=== PATIENT | female | born 1960 ===

== ENCOUNTER 2023-05-18 13:08 | Emergency (ER) | payer OTHER, SELFPAY ==
--- NOTE | ~2023-05-18 | XR_ITS ---
EXAMINATION: XR WRIST, RIGHT XR HAND, RIGHT CLINICAL INFORMATION: Fall. COMPARISON: None available. TECHNIQUE: PA, lateral, and oblique views of the right wrist and PA, lateral, and oblique views of the right hand FINDINGS: RIGHT WRIST: There is a nondisplaced fracture distal radius. There is mild dorsal wrist soft tissue swelling There is normal intercarpal, radioulnar carpal and carpometacarpal alignment. The soft tissues are normal. RIGHT HAND: The bones and soft tissues are normal. No fracture. Alignment is anatomic. Joint spaces are maintained. No erosions or soft tissue calcifications. XR/XR hand wrist RT IMPRESSION: 1. Nondisplaced fracture distal radius with mild soft tissue swelling. 2. Otherwise unremarkable right hand and right wrist exam.
[2023-05-18 14:20] VITALS: BP 119/63; PULSE 70; RESP 19; TEMP 36.6; O2SAT 99; BMI 24.8
--- NOTE | 2023-05-18 15:13 | ED_ITS ---
HPI - Extremity Injury (Upper) General Chief Complaint: Extremity Injury, Upper Stated Complaint: R Wrist Injury 05/18/23 Time Seen by Provider: 05/18/23 15:05 Source: patient and family Mode of arrival: ambulatory Limitations: no limitations History of Present Illness HPI narrative: 62 yo right hand dominant female presents to the ER for evaluation of right wrist pain after a slip and fall today. She tripped on a ramp while carrying groceries and fell on an outstretched hand. She reports pain in the entire wrist, mostly on the radial side which radiates proximally. No bruising or deformity, minimal swelling. Not on blood thinners. No other injuries. complaint: injury to: right and wrist Onset (ago): hour(s) Other Extremity Injury: right: wrist Other injuries: none Place: outdoors Severity: moderate Exacerbating factors: movement of extremity Context: fall Associated symptoms: denies other symptoms Related Data Allergies Allergy/AdvReac Type Severity Reaction Status Date / Time No Known Allergies Allergy Verified 05/18/23 14:20 Review of Systems Review of Systems: Yes all other systems are reviewed and are negative FORMERLY [facility], [facility] Social History Social History Advance Directives: No Advance Directives Information Provided: No Physical Exam Vital Signs: Vital Signs: Last Vital Signs Temp 98 F 05/18/23 14:20 Pulse 70 05/18/23 14:20 Resp 19 05/18/23 14:20 BP 119/63 05/18/23 14:20 Pulse Ox 99 05/18/23 14:20 O2 Del Method Room Air 05/18/23 14:20 BMI result Body Mass Index 24.8 Appearance: Alert. Oriented X3. No acute distress. Deaf, using lip reading to communicate HEENT: normal inspection CVS: Normal heart rate and rhythm. Pulses normal. Respiratory: No respiratory distress. Skin: Skin warm and dry. Normal skin color. Normal skin turgor. No rashes. Extremities: right wrist and distal forearm with trace swelling, tenderness of the dorsal wrist and lateral wrist over the distal radius. no gross deformity. hand is warm and well perfused. 2+ radial pulse and cap refill <3 sec. 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 nontender right forearm w/ FROM of the right elbow and shoulder. no metacarpal bone tenderness Neuro: Oriented X 3. Medical Decision Making Medical Decision Making MDM Narrative: 62 y/o female w/ hx deafness, epilepsy presenting w/ right wrist pain s/p mechanical fall today. xr w/ nondisplaced distal radius fracutre. NV intact. placed in splint. counseled w/ her at the bedside the diagnosis, treatment and expected course along w/ need for follow up with orthopedics. they expressed understanding and all questions were answered Differential Diagnosis Differential Diagnoses: The differential diagnosis associated with the presentation includes colles fracture, lubin fracture, distal radius fracture, ulnar fracture, wrist sprain Independent Interpretation I performed an independent interpretation of an: Plain X-Ray Interpretation: distal radius fracture, no displacement Radiology Impression Discussion of test interpretation with radiology: I have reviewed the radiologist's reading. Radiologist Impression: EXAMINATION: XR WRIST, RIGHT XR HAND, RIGHT CLINICAL INFORMATION: Fall. COMPARISON: None available. TECHNIQUE: PA, lateral, and oblique views of the right wrist and PA, lateral, and oblique views of the right hand FINDINGS: RIGHT WRIST: There is a nondisplaced fracture distal radius. There is mild dorsal wrist soft tissue swelling There is normal intercarpal, radioulnar carpal and carpometacarpal alignment. The soft tissues are normal. RIGHT HAND: The bones and soft tissues are normal. No fracture. Alignment is anatomic. Joint spaces are maintained. No erosions or soft tissue calcifications. XR/XR hand wrist RT IMPRESSION: 1. Nondisplaced fracture distal radius with mild soft tissue swelling. 2. Otherwise unremarkable right hand and right wrist exam. Independent Historian Clinical information obtained from an independent historian. History obtained from or confirmed by: Spouse Prescription Management I considered prescription management with: Pain Medication Procedures Orthopedic Splinting/Casting Injury #1: Side: right Upper Extremity Injury Location: wrist Upper Extremity Immobilizer: sling/shoulder immobilizer and sugar tong splint Critical Care Time Critical Care Time Critical Care Time: No Discharge Plan Discharge Clinical Impression: Distal radial fracture Qualifiers: Encounter type: initial encounter Fracture type: closed Fracture morphology: unspecified fracture morphology Laterality: right Qualified Code(s): S52.501A - Unspecified fracture of the lower end of right radius, initial encounter for closed fracture Patient Disposition: Home, Self-Care Instructions: Wrist Fracture in Adults (ED) Additional Instructions: Your x-ray today showed a nondisplaced fracture of the and of the radius bone in your wrist. A temporary splint was placed today, where into a follow-up with orthopedics. Do not get wet. Follow-up with Orthopedics, call for an appointment. Elevate her hand when possible. Take Motrin and Tylenol as needed for pain. Referrals: [facility] [Provider Group] (RIGHT WRIST: There is a nondisplaced fracture distal radius. There is mild dorsal wrist soft tissue swelling There is normal intercarpal, radioulnar carpal and carpometacarpal alignment. The soft tissues are normal. RIGHT HAND: The bones and soft tissues are normal. No fracture. Alignment is anatomic. Joint spaces are maintained. No erosions or soft tissue calcifications. XR/XR hand wrist RT IMPRESSION: 1. Nondisplaced fracture distal radius with mild soft tissue swelling. 2. Otherwise unremarkable right hand and right wrist exam. )
== END 2023-05-18 16:24 | disposition home or self-care (01) ==
PROVIDERS: Emergency Provider Emergency Medicine Emergency Medical Services
DX: S52.501A Unspecified fracture of the lower end of right radius, initial encounter for closed fracture (principal); M25.531 Pain in right wrist; W01.0XXA Fall on same level from slipping, tripping and stumbling without subsequent striking against object, initial encounter; Y93.9 Activity, unspecified; Y92.9 Unspecified place or not applicable; Y99.9 Unspecified external cause status
CPT/HCPCS: 29125; 73110; 73130; 99282; 99284

== ENCOUNTER 2023-05-24 08:42 | Outpatient (AMB) | payer OTHER, SELFPAY ==
[2023-05-24 08:48] VITALS: BMI 24.8
--- NOTE | 2023-05-24 08:48 | MHC.OFFVIS ---
Intake Vital Signs 05/24/23 08:48 Height 5 ft 3 in Weight 140 lb BMI 24.8 Intake Visit Reasons: FC - RT distal radius fx, DOI 05/18/23 Intake Note: Sujey is a 62 year old right hand dominant female who presents today with her partner for a evaluation for her right wrist fx, DOI 05/18/23. Patient reports she feel down the stairs landing on her right arm. Her pain is more on her wrist per patient. Allergies No Known Allergies Allergy (Verified 05/24/23 08:54) HPI FC - RT distal radius fx, DOI 05/18/23 HPI Details 62-year-old right hand dominant female who presents in the office today, as a new patient, for an evaluation of right wrist pain. The patient presented to the ED on 05/18/2023 status post a slip and fall while carrying groceries, causing her to fall on an outstretched hand. X-rays of the right wrist were obtained. She was placed in a sugar tong splint and referred to orthopedics. The patient states her pain is more along the wrist. Patient works in the [employer] business. 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 No ecchymosis or erythema. Edema located on the dorsal aspect of the hand extending to the MCP. Tenderness to palpation over the fracture site distal radius. Able to perform full finger flexion, extension, abduction, adduction, finger cross, okay sign, and thumbs up without deficit. Lacking 3 cm from making a closed fist. Able to slightly flex and extend at the wrist. Sensation intact. Capillary refill is brisk. Radial pulse intact. Office Procedures Casting/Splints 13381-Cboy/Wrist Cast Application Procedure code (CPT) selection complete Fracture Care Fracture Billing Code: Fracture Billing Code Assessment & Plan Assessment & Plan (1) Fracture of right distal radius: Code(s): S52.501A - Unspecified fracture of the lower end of right radius, initial encounter for closed fracture Qualifiers: Encounter type: initial encounter Fracture morphology: unspecified fracture morphology Fracture type: closed Qualified Code(s): S52.501A - Unspecified fracture of the lower end of right radius, initial encounter for closed fracture Plan Ms. Ma is a 62-year-old right hand dominant female who presents in the office today, as a new patient, for an evaluation of right wrist pain. The patient presented to the ED on 05/18/2023 status post a slip and fall while carrying groceries, causing her to fall on an outstretched hand. X-rays of the right wrist were obtained. She was placed in a sugar tong splint and referred to orthopedics. The patient states her pain is more along the wrist. Patient works in the [employer] business. The patient will be placed in a custom made cast while in the office today. She will remain in the cast for 6 weeks. She was given a work note stating out of work until follow up and then anticipated no lifting, pushing, or pulling with the right upper extremity for 6-8 weeks. She was given a prescription for tramadol 50 mg PO Q8H PRN for a one time prescription. After this she can take OTC tylenol or ibuprofen for relief. Follow up will be in 4 weeks with cast off for repeat x-rays, or sooner if needed. X-rays of the right wrist obtained while in the office today and reviewed by me, Cady Alvarado PA-C, revealed a nondisplaced distal radius fracture. X-rays of the right wrist, obtained on 05/18/2023, revealed: 1. Nondisplaced fracture distal radius with mild soft tissue swelling. 2. Otherwise unremarkable right hand and right wrist exam. Orders: Orders XR wrist RT min 3V Today M25.539 - Pain in unspecified wrist Medications: New tramadol 50 mg PO Q8H PRN 21 tabs 0RF pain 7 days Patient Instructions: Scribed for Cady Alvarado PA-C by Lyly Stanford medical records clerk, on 05/24/2023 at 8:51 am, EST. Coding Level of Care Code New Pt Level 4 (68329) Diagnoses Closed fracture of distal end of right radius, unspecified fracture morphology, initial encounter S52.501A Encounter type: initial encounter Fracture morphology: unspecified fracture morphology Fracture type: closed CPT Codes Casting - CPT: 70803-Azod/Wrist Cast Application ([id number]) Fracture Care - Fracture Billing Code: Fracture Billing Code ([id number])
== END 2023-05-24 09:38 | disposition home or self-care (01) ==
PROVIDERS: Visit Provider Physician Assistant
DX: S52.501A Unspecified fracture of the lower end of right radius, initial encounter for closed fracture (principal); W10.8XXA Fall (on) (from) other stairs and steps, initial encounter
CPT/HCPCS: 25600; 99204

== ENCOUNTER 2023-05-24 11:15 | Outpatient (REF) | payer OTHER, SELFPAY ==
--- NOTE | ~2023-05-24 | XR_ITS ---
EXAMINATION: XR WRIST, RIGHT CLINICAL INFORMATION: Wrist pain COMPARISON: 05/18/2023 TECHNIQUE: PA, lateral, and oblique views of the right wrist. FINDINGS: Redemonstration of a nondisplaced fracture of the distal radius. Alignment is stable. Fracture line is still visible. There is subtle increased sclerosis along the fracture line suggesting some interval healing. Moderate degenerative changes first carpometacarpal joint with joint space narrowing and hypertrophic change. XR/XR wrist RT min 3V IMPRESSION: Healing, nondisplaced fracture of the distal radius.
== END 2023-05-24 11:16 | disposition home or self-care (01) ==
LOC: HO.HOSX 11:15
PROVIDERS: Visit Provider Physician Assistant
DX: S52.501A Unspecified fracture of the lower end of right radius, initial encounter for closed fracture (principal)
CPT/HCPCS: 25600; 73110; 99202

== ENCOUNTER 2023-06-03 13:21 | Outpatient (AMB) | payer OTHER, SELFPAY ==
--- NOTE | 2023-06-03 13:31 | MHC.OFFVIS ---
Intake Intake Visit Reasons: ov- OV- RT distal radius fx DOI 05/18 cast Intake Note: Sujey is a 62 year old female who presents today for a cast change. 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 Office Procedures Casting/Splints 59713-Wmfy/Wrist Cast Application Procedure code (CPT) selection complete Assessment & Plan Assessment & Plan (1) Fracture of right distal radius: Code(s): S52.501A - Unspecified fracture of the lower end of right radius, initial encounter for closed fracture Qualifiers: Encounter type: initial encounter Fracture type: closed Fracture morphology: unspecified fracture morphology Qualified Code(s): S52.501A - Unspecified fracture of the lower end of right radius, initial encounter for closed fracture Plan: patient was placed in a short arm cast and will return for her routine post op apt Coding Level of Care Code Global (67749) Diagnoses Closed fracture of distal end of right radius, unspecified fracture morphology, initial encounter S52.501A Encounter type: initial encounter Fracture type: closed Fracture morphology: unspecified fracture morphology CPT Codes Casting - CPT: 65378-Rptz/Wrist Cast Application ([id number])
== END 2023-06-03 14:24 | disposition home or self-care (01) ==
PROVIDERS: Visit Provider Physician Assistant
DX: S52.501A Unspecified fracture of the lower end of right radius, initial encounter for closed fracture (principal)
CPT/HCPCS: 29085; 99024

== ENCOUNTER → 2023-06-03 13:21 | Outpatient (BNVA) | payer OTHER, SELFPAY | PROVIDERS: Visit Provider Physician Assistant | DX: Z48.00 Encounter for change or removal of nonsurgical wound dressing (principal); S52.501A Unspecified fracture of the lower end of right radius, initial encounter for closed fracture; X58.XXXA Exposure to other specified factors, initial encounter; Y93.9 Activity, unspecified; Y92.89 Other specified places as the place of occurrence of the external cause; Y99.8 Other external cause status | CPT/HCPCS: 29085 ==

== ENCOUNTER 2023-06-21 09:10 | Outpatient (AMB) | payer OTHER, SELFPAY ==
[2023-06-21 09:35] VITALS: BMI 24.8
--- NOTE | 2023-06-21 09:35 | A.OFFVIS_ITS ---
Intake Vital Signs 06/21/23 09:35 Height 5 ft 3 in Weight 140 lb BMI 24.8 Intake Visit Reasons: OV- RT distal radius fx DOI 05/18 cast off w/xrays Intake Note: Sujey 62 yr old female who has auditory disability, presents today for her follow up visit for her Right distal radius fx from 05/18/23. Cast removed in office and xrays updated. States she has pain and soreness since removal of brace. Allergies No Known Allergies Allergy (Verified 06/21/23 09:37) HPI OV- RT distal radius fx DOI 05/18 cast off w/xrays HPI Details The patient is a 62-year-old woman who uses Greek sign language for communication. She is seen today with her . She sustained a right distal radius fracture on 05/18/2023 and this has been managed non operatively in a cast. She is seen today with new radiographs out of plaster. She says her wrist is not hurting, but it feels very stiff and weak. 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 Her cast was discontinued today. Her distal radius fracture was nontender. The DRUJ is nontender and is stable on exam. She can make a fist and extend all of her digits. She has normal sensation to all digits. She has about 60 degrees of pronation and about 60 degrees of supination on the right. She has about 30 degrees of wrist extension and about 20 degrees of wrist flexion. Radiographs three views of the right wrist were reviewed by me today in clinic. They show a transverse extra-articular distal radius fracture that is healed in satisfactory alignment with about 8 degrees of dorsal tilt on the lateral view. Good evidence of interval bony healing. Assessment & Plan Assessment & Plan (1) Fracture of right distal radius: Code(s): S52.501A - Unspecified fracture of the lower end of right radius, initial encounter for closed fracture Qualifiers: Encounter type: initial encounter Fracture type: closed Fracture morphology: unspecified fracture morphology Qualified Code(s): S52.501A - Unspecified fracture of the lower end of right radius, initial encounter for closed fracture Plan Assessment and plan: 1. Right distal radius fracture Date of injury 05/20/2023 This is been managed non operatively in a cast. I am discontinuing her cast today. She appears to be healing well. I showed her some exercises to work on range of motion. Fitted her with a Velcro wrist splint to wear with activities out of the house for the next few weeks. We talked about activity modification. I want her start using her hand for non impact activities and start with light and medium weight activities working up to lifting perhaps a half a gal of milk in the next 3-4 weeks than perhaps a gal of milk in the next 6-8 weeks. I am also ordering outpatient OT hand therapy to help work on range of motion and then strengthening and improving function. I am going to keep her out of work for the next 3 weeks while she works on range of motion. It would be very hard for her in bryan coordinate their work schedules while she can not drive, and the patient and I both agree that she is really not ready to be driving a car. Follow-up in 3 weeks. Radiographs are only necessary if she is having pain or had a fall. At that time who fully we can address return to driving and returned to work. Orders: Orders XR wrist RT min 3V Today M25.539 - Pain in unspecified wrist Coding Level of Care Code Global (89552) Diagnoses Closed fracture of distal end of right radius, unspecified fracture morphology, initial encounter S52.501A Encounter type: initial encounter Fracture type: closed Fracture morphology: unspecified fracture morphology
== END 2023-06-21 10:07 | disposition home or self-care (01) ==
PROVIDERS: Visit Provider Orthopaedic Surgery
DX: S52.501A Unspecified fracture of the lower end of right radius, initial encounter for closed fracture (principal)
CPT/HCPCS: 99024

== ENCOUNTER 2023-06-21 10:03 | Outpatient (REF) | payer OTHER, SELFPAY ==
--- NOTE | ~2023-06-21 | XR_ITS ---
EXAMINATION: XR WRIST, RIGHT CLINICAL INFORMATION: Pain and unspecified wrist. Cast off. Nondisplaced fracture distal radius. COMPARISON: 05/24/2023. 05/18/2023. TECHNIQUE: PA, lateral, and oblique views of the right wrist. FINDINGS: Redemonstration of a nondisplaced fracture of the distal radius. Alignment is stable. Fracture line is still visible. There is increased sclerosis along the fracture line suggesting some interval healing. Moderate degenerative changes first carpometacarpal joint and metacarpophalangeal joint with joint space narrowing and hypertrophic change. There is irregularity and hypertrophic change along the medial base of the third proximal phalanx. Dedicated views should be considered for further evaluation if there is clinical concern. Tiny calcification adjacent to the ulnar styloid, possibly an avulsion fracture. XR/XR wrist RT min 3V IMPRESSION: Healing, nondisplaced fracture of the distal radius.
== END 2023-06-21 10:04 | disposition home or self-care (01) ==
LOC: HO.HOSX 10:03
PROVIDERS: Visit Provider Physician Assistant
DX: S52.501D Unspecified fracture of the lower end of right radius, subsequent encounter for closed fracture with routine healing (principal)
CPT/HCPCS: 73110

== ENCOUNTER 2023-07-12 09:52 | Outpatient (REF) | payer OTHER, SELFPAY | END 2023-07-12 09:53 | disposition home or self-care (01) | LOC: HO.HOSX 09:52 | PROVIDERS: Visit Provider Physician Assistant | DX: Z13.89 Encounter for screening for other disorder (principal) ==

== ENCOUNTER 2023-07-14 09:12 | Outpatient (REF) | payer OTHER, SELFPAY ==
--- NOTE | ~2023-07-14 | XR_ITS ---
EXAMINATION: XR WRIST, RIGHT CLINICAL INFORMATION: Pain and unspecified wrist. Cast off. Nondisplaced fracture distal radius. COMPARISON: 06/21/2023. 05/24/2023. 05/18/2023. TECHNIQUE: PA, lateral, and oblique views of the right wrist. FINDINGS: Bones are diffusely demineralized. Redemonstration of a nondisplaced fracture of the distal radius. Fracture line is still visible, although sclerosis along the fracture line characteristic of callus is present. Moderate degenerative changes first carpometacarpal joint and metacarpophalangeal joint with joint space narrowing and hypertrophic change. Redemonstration of a tiny ossification/calcification adjacent to the ulnar styloid, possibly an avulsion fracture. XR/XR wrist RT min 3V IMPRESSION: Healing, nondisplaced fracture of the distal radius.
== END 2023-07-14 09:13 | disposition home or self-care (01) ==
LOC: HO.HOSX 09:12
PROVIDERS: Visit Provider Physician Assistant
DX: M25.531 Pain in right wrist (principal); S52.501D Unspecified fracture of the lower end of right radius, subsequent encounter for closed fracture with routine healing; W19.XXXD Unspecified fall, subsequent encounter
CPT/HCPCS: 73110; 99212

== ENCOUNTER 2023-07-14 11:07 | Outpatient (AMB) | payer OTHER, SELFPAY ==
[2023-07-14 11:10] VITALS: BMI 24.8
--- NOTE | 2023-07-14 11:10 | A.OFFVIS_ITS ---
Intake Vital Signs 07/14/23 11:10 Height 5 ft 3 in Weight 140 lb BMI 24.8 Handedness Right Intake Visit Reasons: OV - RT distal radius fx,DOI 05/18/23 Intake Note: Sujey is a 62 year old right hand dominant female who presents today with her partner for a follow up for her right wrist fx, DOI 05/18/23. Patient reports no pain at the moment. She states that when she moves it a certain way it feels a bit sore. Allergies No Known Allergies Allergy (Verified 07/14/23 11:18) HPI OV - RT distal radius fx,DOI 05/18/23 HPI Details 62-year-old right hand dominant female jennifer hernandez presents in the office today for a follow up of a right wrist distal radius fracture, which occurred on 05/18/2023 status post a slip and fall while carrying groceries, causing her to fall on an outstretched hand. The patient reports having some soreness in the right wrist. 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 Her family member states she would like to return to work. The patient is accompanied in the office today by a family member. 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 The DRUJ is nontender and is stable. She can make a fist and extend all of her digits. She has normal sensation to all digits. Continues to have limitations with pronation, supination wrist extension and flexion due to stiffness and does report mild pain with wrist extension. Assessment & Plan Assessment & Plan (1) Fracture of right distal radius: Code(s): S52.501A - Unspecified fracture of the lower end of right radius, initial encounter for closed fracture Qualifiers: Encounter type: initial encounter Fracture morphology: unspecified fracture morphology Fracture type: closed Qualified Code(s): S52.501A - Unspec ified fracture of the lower end of right radius, initial encounter for closed fracture Plan Ms. Ma is a 62-year-old right hand dominant female who presents in the office today for a follow up of a right wrist distal radius fracture, which occurred on 05/18/2023 status post a slip and fall while carrying groceries, causing her to fall on an outstretched hand. The patient reports having some soreness in the right wrist. Patient works in the [employer] business. Her family member states she would like to return to work. The patient is accompanied in the office today by a family member. The patient will begin to work on gentle ROM with occupational therapy. A referral was placed today. She was given a work note stating she is restricted from lifting greater than 5 pounds and she is able to fold clothing. Otherwise, she should remain out of work. I would like for her to call the office in 2 weeks to discuss her return to work status. She can discontinue the use of the brace at this time. Follow up will be in 4 weeks for a ROM check, or sooner if needed. X-rays of the right wrist which were obtained while in the office today and were reviewed by me, Cady Alvarado PA-C, revealed a completely healed right distal radius fracture. Orders: Orders XR wrist RT min 3V Today M25.539 - Pain in unspecified wrist Patient Instructions: Scribed for Cady Alvarado PA-C by Lyly Stanford medical science liaison, on 07/14/2023 at 11:10 am, EST. Coding Level of Care Code Global (62544) Diagnoses Closed fracture of distal end of right radius, unspecified fracture morphology, initial encounter S52.501A Encounter type: initial encounter Fracture morphology: unspecified fracture morphology Fracture type: closed
== END 2023-07-14 12:32 | disposition home or self-care (01) ==
PROVIDERS: Visit Provider Physician Assistant
DX: S52.501A Unspecified fracture of the lower end of right radius, initial encounter for closed fracture (principal)
CPT/HCPCS: 99024

== ENCOUNTER 2023-07-27 10:30 | Outpatient (RCR) | payer OTHER, SELFPAY ==
--- NOTE | 2023-07-06 11:38 | MHC.OT.EP ---
[address] [phone] Occupational Therapy Plan of Care Patient Name: Sujey Ma Date of Evaluation: 07/06/23 Diagnosis: Right DR fracture Pain Location: 2-5 right wrist. ache Pain Score: 5 Pain Scale Used: Numeric (0 - 10) Aggravating Factors: End range wrist ROM and forearm rotation. 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 Frequency and Duration: The patient will be seen 2x wk x 4 wks Short Term Goals: Demo indep with HEP Wrist ext to 55 deg Wrist flexion to 50 deg Right online editor to > 15 lb Tolerate lifting up to 5 lb Feed self with right hand 75 % of the meal Factory Maintenance Technician Goals: Forearm supination to 70 deg Wrist ext > 60 deg Wrist flex to 60 deg Feed self with right hand 100% of the meal Report increased ease turning steering wheel Tolerated lifting 15 lb bag with bilateral hands Report mild difficulty with daily activities due to right wrist Quick DASH to < 20 points Treatment Plan: Therapeutic Exercise Therapeutic Activity Home Exercise Program Patient Education ADL Training Fluidotherapy Soft Tissue Mobilization disassembler needed Electronically Signed By: Padmini Noble OT CHT CLT Please Sign and return to therapist. Thank you once again for your referral.
--- NOTE | 2023-09-28 09:18 | MHC.OT.DC ---
[address] [phone] F: [phone] Occupational Therapy Discharge Note Patient Name: Sujey Ma Provider: Heather Escobar Diagnosis: Right DR fracture Date of Surgery: Date of Evaluation: 07/06/23 Date of Discharge: Treatments to Date: 7 Cancellations to Date: 0 No Shows to Date: 0 Discharge Status: Patient Elected to Stop Discharge Summary: Progressing well with hand ROM, strength and hand function. Pain primarily with ther ex, pt avoiding heavy use. No change in wrist ext. WFL Pt cancelled follow up appointments due to loss of insurance coverage. Electronically Signed By: Padmini Noble OT CHT CLT Reviewed/agree with student documentation: Therapist: HAKAN Carter/Pk SAUER Please Sign and return to therapist, thank you for your referral.
== END 2023-09-28 09:19 | disposition home or self-care (01) ==
LOC: HO.OT 10:30
PROVIDERS: Visit Provider Orthopaedic Surgery
DX: S52.501D Unspecified fracture of the lower end of right radius, subsequent encounter for closed fracture with routine healing (principal)
CPT/HCPCS: 97035; 97110; 97165

== ENCOUNTER 2023-08-19 10:27 | Outpatient (AMB) | payer SELFPAY ==
[2023-08-19 10:59] VITALS: BMI 24.8
--- NOTE | 2023-08-19 10:59 | MHC.OFFVIS ---
Intake Vital Signs 08/19/23 10:59 Height 5 ft 3 in Weight 140 lb BMI 24.8 Intake Visit Reasons: OV - RT distal Radius FX, DOI 05/18/23 Intake Note: Sujye is a 62 year old right hand dominant female who presents today with her partner for a ROM check her right distal radius fx, DOI 05/18/23. Patient reports that her ROM is good and she would like a note for work. Software Quality Assurance Specialist Name: [id number] Allergies No Known Allergies Allergy (Verified 08/19/23 11:06) HPI OV - RT distal Radius FX, DOI 05/18/23 HPI Details 63-year-old right hand dominant female who presents in the office today for a follow up of a right wrist distal radius fracture, which occurred on 05/18/2023 status post a slip and fall while carrying groceries, causing her to fall on an outstretched hand. I last saw the patient while in the office on 07/14/2023 when she was referred to occupational therapy. She was given work restrictions of no lifting greater than 5 pounds and stating she is able to fold clothing. Otherwise she was to remain out of work. While in the office today the patient reports her ROM is good and she would like to return to work. She states the wrist is okay with a little pain. She states she attended occupational therapy and completed all her sessions. 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 No ecchymosis, erythema, or edema. Able to perform full finger flexion, extension, abduction, adduction, finger cross, okay sign, and thumbs up without deficit. Able to make a closed fist. Sensation intact. Capillary refill is brisk. Radial pulse intact. Assessment & Plan Assessment & Plan (1) Fracture of right distal radius: Code(s): S52.501A - Unspecified fracture of the lower end of right radius, initial encounter for closed fracture Qualifiers: Encounter type: initial encounter Fracture morphology: unspecified fracture morphology Fracture type: closed Qualified Code(s): S52.501A - Unspecified fracture of the lower end of right radius, initial encounter for closed fracture Plan Ms. Ma is a 63-year-old right hand dominant female who presents in the office today for a follow up of a right wrist distal radius fracture, which occurred on 05/18/2023 status post a slip and fall while carrying groceries, causing her to fall on an outstretched hand. I last saw the patient while in the office on 07/14/2023 when she was referred to occupational therapy. She was given work restrictions of no lifting greater than 5 pounds and stating she is able to fold clothing. Otherwise she was to remain out of work. While in the office today the patient reports her ROM is good and she would like to return to work. She states the wrist is okay with a little pain. She states she attended occupational therapy and completed all her sessions. 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 Follow up will be PRN, or sooner if needed. Patient Instructions: Scribed for Cady Alvarado PA-C by Lyly Stanford biomedical specialist, on 08/16/2023 at 10:31 am, EST. Coding Level of Care Code Est Pt Level 3 (99352) Diagnoses Closed fracture of distal end of right radius, unspecified fracture morphology, initial encounter S52.501A Encounter type: initial encounter Fracture morphology: unspecified fracture morphology Fracture type: closed
== END 2023-08-19 11:15 | disposition home or self-care (01) ==
PROVIDERS: Visit Provider Physician Assistant
DX: S52.501D Unspecified fracture of the lower end of right radius, subsequent encounter for closed fracture with routine healing (principal)
CPT/HCPCS: 99024

== ENCOUNTER → 2023-08-19 10:27 | Outpatient (BNVA) | payer SELFPAY | PROVIDERS: Visit Provider Physician Assistant | DX: S52.501D Unspecified fracture of the lower end of right radius, subsequent encounter for closed fracture with routine healing (principal) | CPT/HCPCS: 99212 ==